=== PATIENT | female | born 1990 | race African-American/Black ===

== ENCOUNTER 2017-05-27 13:25 | Emergency (ER) | payer SELFPAY | END 2017-05-27 14:24 | disposition home or self-care (01) | LOC: ERS 13:25 | DX: I10 Essential (primary) hypertension (principal); H53.8 Other visual disturbances; F41.9 Anxiety disorder, unspecified; F32.9 Major depressive disorder, single episode, unspecified; F17.210 Nicotine dependence, cigarettes, uncomplicated; Z71.6 Tobacco abuse counseling | CPT/HCPCS: 99406 ==

== ENCOUNTER 2017-05-30 02:46 | Emergency (ER) | payer SELFPAY ==
[2017-05-30] MEDS ORDERED: Hydrochlorothiazide 25 MG TAB PO SCH (03:30)
== END 2017-05-30 04:00 | disposition home or self-care (01) ==
LOC: ERS 02:46
DX: I10 Essential (primary) hypertension (principal); F41.9 Anxiety disorder, unspecified; F32.9 Major depressive disorder, single episode, unspecified; F17.210 Nicotine dependence, cigarettes, uncomplicated
CPT/HCPCS: 99283

== ENCOUNTER 2017-06-25 18:52 | Emergency (ER) | payer SELFPAY ==
[2017-06-25] MEDS ORDERED: Ibuprofen 200 MG TAB ONE (20:21)
[2017-06-25] MEDS ORDERED: Acetaminophen 500 MG TAB ONE (20:21)
[2017-06-25] MEDS ORDERED: Ondansetron ODT 4 MG TAB ONE (20:58)
== END 2017-06-25 21:26 | disposition home or self-care (01) ==
LOC: ERS 18:52
DX: J11.1 Influenza due to unidentified influenza virus with other respiratory manifestations (principal); I10 Essential (primary) hypertension; F41.9 Anxiety disorder, unspecified; F32.9 Major depressive disorder, single episode, unspecified; F17.210 Nicotine dependence, cigarettes, uncomplicated; Z79.899 Other long term (current) drug therapy
CPT/HCPCS: 87804; 99283; Q0162